=== PATIENT | male | born 1965 | race Caucasian/White ===

== ENCOUNTER 2020-07-21 05:30 | Inpatient (IN) | payer OTHER ==
[~2020-07-21] VITALS: Ht 182.9 cm; Wt 175.1 kg
[2020-07-21] MEDS: IPRATROPIUM BROMIDE 0.02% 2.5 ML NEB NEB SCH ×2 (00:05→14:20)
[2020-07-21] MEDS ORDERED: ASPIRIN 81 MG CHEW TAB PO ONE (05:45)
[2020-07-21] MEDS ORDERED: DILTIAZEM HCL 5 MG/ML 5 ML VIAL IV STA ×2 (05:54)
[2020-07-21 06:01] LABS: BASOPHILS # (AUTO) 0.1 (0.0-0.1); BASOPHILS % 0.5 % (0.0-1.0); EOSINOPHILS # (AUTO) 0.1 (0.0-0.4); EOSINOPHILS % 0.7 % (0.0-6.0); HEMATOCRIT 46.2 % (38.2-49.6); HEMOGLOBIN 15.1 g/dL (14.0-18.0); LYMPHOCYTES # (AUTO) 0.8 (1.0-3.2); LYMPHOCYTES % 8.6 % (18.0-39.1); MEAN CORPUSCULAR HEMOGLOBIN 31.3 pg (28-32); MEAN CORPUSCULAR HGB CONC 32.7 g/dL (31-35); MEAN CORPUSCULAR VOLUME 95.7 fL (81-99); MONOCYTES # (AUTO) 0.6 (0.2-0.8); MONOCYTES % 6.2 % (4.4-11.3); NEUTROPHILS % 83.3 % (38.7-80.0); PLATELET COUNT 193 x10e3/uL (140-360); RED BLOOD COUNT 4.83 x10e6/uL (4.3-5.7); RED CELL DISTRIBUTION WIDTH 14.1 % (11.7-14.4)
[2020-07-21 06:13] LABS: ALANINE AMINOTRANSFERASE 252 IU/L (0-55); ALBUMIN 3.4 g/dL (3.5-5.0); ALBUMIN/GLOBULIN RATIO 1.1 (0.8-2.0); ALKALINE PHOSPHATASE 86 IU/L (40-150); BLOOD UREA NITROGEN 16 mg/dL (7-26); BUN/CREATININE RATIO 13 (6-25); CALCIUM 8.4 mg/dL (8.4-10.2); CARBON DIOXIDE 26 mmol/L (22-29); CHLORIDE 105 mmol/L (98-107); CREATINE KINASE 66 IU/L (30-200); CREATININE, SERUM 1.22 mg/dL (0.72-1.25); EST GLOMERULAR FILTRATION RATE > 60 ML/MIN (60-); GLUCOSE 263 mg/dL (74-118); SODIUM 140 mmol/L (136-145)
[2020-07-21] MEDS ORDERED: FUROSEMIDE INJ 10 MG/ML 4 ML VIAL IV ONE (06:30)
[2020-07-21] MEDS ORDERED: DILTIAZEM HCL 125 ML IV STA (07:00)
[2020-07-21] MEDS ORDERED: AMIODARONE HCL 150 MG/100 ML BAG IV ONE (07:15)
[2020-07-21] MEDS ORDERED: NEXTERONE IV 150MG/100ML PREMIX BAG IV ONE (07:15)
[2020-07-21] MEDS: AMIODARONE 900MG 500 ML IV PRN (07:46)
[2020-07-21] MEDS: DILTIAZEM HCL 125 ML IV SCH (07:47)
[2020-07-21] MEDS: FUROSEMIDE INJ 10 MG/ML 4 ML VIAL IV SCH ×2 (13:22→23:00)
[2020-07-21] MEDS: METOPROLOL TARTRATE 25 MG TAB PO SCH ×2 (13:23→18:02)
[2020-07-21] MEDS: APIXABAN 5 MG TABLET PO SCH (13:23)
[2020-07-21 16:15] LABS: CREATINE KINASE MB 2.7 ng/mL (0-5.0)
[2020-07-21] MEDS ORDERED: TRAMADOL HCL 50 MG TAB PO PRN (22:00)
[2020-07-22 00:15] LABS: CREATINE KINASE MB 2.3 ng/mL (0-5.0)
[2020-07-22] MEDS: IPRATROPIUM BROMIDE 0.02% 2.5 ML NEB NEB SCH ×4 (00:20→19:10)
[2020-07-22] MEDS: METOPROLOL TARTRATE 25 MG TAB PO SCH ×2 (03:00→08:45)
[2020-07-22] MEDS ORDERED: ZOLPIDEM TARTRATE 5 MG TAB PO PRN (05:45)
[2020-07-22 05:46] LABS: BASOPHILS # (AUTO) 0.1 (0.0-0.1); BASOPHILS % 0.6 % (0.0-1.0); EOSINOPHILS # (AUTO) 0.2 (0.0-0.4); EOSINOPHILS % 2.2 % (0.0-6.0); HEMATOCRIT 44.8 % (38.2-49.6); HEMOGLOBIN 14.5 g/dL (14.0-18.0); LYMPHOCYTES # (AUTO) 1.3 (1.0-3.2); LYMPHOCYTES % 16.7 % (18.0-39.1); MEAN CORPUSCULAR HEMOGLOBIN 31.3 pg (28-32); MEAN CORPUSCULAR HGB CONC 32.4 g/dL (31-35); MEAN CORPUSCULAR VOLUME 96.8 fL (81-99); MONOCYTES # (AUTO) 0.6 (0.2-0.8); MONOCYTES % 7.6 % (4.4-11.3); NEUTROPHILS # (AUTO) 5.7 (2.1-6.9); NEUTROPHILS % 72.1 % (38.7-80.0); PLATELET COUNT 171 x10e3/uL (140-360); RED BLOOD COUNT 4.63 x10e6/uL (4.3-5.7); RED CELL DISTRIBUTION WIDTH 14.1 % (11.7-14.4)
[2020-07-22 06:08] LABS: ALANINE AMINOTRANSFERASE 188 IU/L (0-55); ALBUMIN 3.3 g/dL (3.5-5.0); ALKALINE PHOSPHATASE 72 IU/L (40-150); ANION GAP 13.8 mmol/L (8-16); BLOOD UREA NITROGEN 14 mg/dL (7-26); BUN/CREATININE RATIO 13 (6-25); CALCIUM 8.3 mg/dL (8.4-10.2); CARBON DIOXIDE 31 mmol/L (22-29); CHLORIDE 101 mmol/L (98-107); CREATININE, SERUM 1.04 mg/dL (0.72-1.25); EST GLOMERULAR FILTRATION RATE > 60 ML/MIN (60-); GLUCOSE 133 mg/dL (74-118); POTASSIUM 3.8 mmol/L (3.5-5.1); SODIUM 142 mmol/L (136-145)
[2020-07-22 06:33] LABS: CREATINE KINASE MB 2.4 ng/mL (0-5.0)
[2020-07-22] MEDS: DILTIAZEM HCL 125 ML IV SCH (08:02)
[2020-07-22] MEDS: APIXABAN 5 MG TABLET PO SCH ×2 (08:45→16:40)
[2020-07-22] MEDS: BENZONATATE 100 MG CAP PO SCH ×3 (08:45→23:04)
[2020-07-22] MEDS: FUROSEMIDE INJ 10 MG/ML 4 ML VIAL IV SCH ×2 (08:45→23:04)
[2020-07-22] MEDS: AMIODARONE 900MG 500 ML IV PRN (10:38)
[2020-07-22] MEDS ORDERED: METOPROLOL TARTRATE 25 MG TAB PO SCH (12:00)
[2020-07-22] MEDS: METOPROLOL TARTRATE 50 MG TAB PO SCH ×2 (12:45→18:30)
[2020-07-23] MEDS: METOPROLOL TARTRATE 50 MG TAB PO SCH ×3 (00:53→12:35)
[2020-07-23] MEDS: IPRATROPIUM BROMIDE 0.02% 2.5 ML NEB NEB SCH ×4 (01:15→18:50)
[2020-07-23] MEDS ORDERED: GUAIFENESIN 600 MG TAB PO PRN (07:00)
[2020-07-23] MEDS: DILTIAZEM HCL 125 ML IV SCH (07:40)
[2020-07-23] MEDS: FUROSEMIDE INJ 10 MG/ML 4 ML VIAL IV SCH ×2 (08:35→21:49)
[2020-07-23] MEDS: APIXABAN 5 MG TABLET PO SCH ×2 (08:35→17:11)
[2020-07-23] MEDS: BENZONATATE 100 MG CAP PO SCH ×3 (08:35→21:49)
[2020-07-23] MEDS ORDERED: LISINOPRIL 2.5 MG TAB PO SCH (09:00)
[2020-07-23] MEDS: AMIODARONE HCL 200 MG TAB PO SCH (17:11)
[2020-07-23] MEDS: VALSARTAN/SACUBITRIL 24MG/26MG 1 EA TAB PO SCH (17:40)
[2020-07-23 18:29] VITALS: BP 139/116
[2020-07-23 20:00] VITALS: BP_SYST 125; BP_SYST 99; BP_DIAS 72; BP_DIAS 83
[2020-07-23] MEDS: METOPROLOL SUCCINATE 50 MG TAB XL PO SCH (20:00)
[2020-07-24] VITALS (8 sets, daily range): BP systolic 111–135; BP diastolic 64–110
[2020-07-24] MEDS: IPRATROPIUM BROMIDE 0.02% 2.5 ML NEB NEB SCH ×5 (00:45→23:29)
[2020-07-24] MEDS ORDERED: SODIUM CHLORIDE 0.9% 250ML 250 ML ONE (05:37)
[2020-07-24] MEDS: CEFTRIAXONE SOD 1 GM/NS 50 ML 50 ML IV SCH (05:37)
[2020-07-24] MEDS: DILTIAZEM HCL 125 ML IV SCH (07:30)
[2020-07-24] MEDS: VALSARTAN/SACUBITRIL 24MG/26MG 1 EA TAB PO SCH ×2 (08:48→16:55)
[2020-07-24] MEDS: APIXABAN 5 MG TABLET PO SCH ×2 (08:48→16:55)
[2020-07-24] MEDS: FUROSEMIDE INJ 10 MG/ML 4 ML VIAL IV SCH (08:48)
[2020-07-24] MEDS: BENZONATATE 100 MG CAP PO SCH ×3 (08:48→21:37)
[2020-07-24] MEDS: AMIODARONE HCL 200 MG TAB PO SCH ×2 (08:48→16:55)
[2020-07-24] MEDS: METOPROLOL SUCCINATE 50 MG TAB XL PO SCH ×2 (08:48→16:56)
[2020-07-24] MEDS ORDERED: SPIRONOLACTONE 25 MG TAB PO NR (11:00)
[2020-07-25] VITALS (10 sets, daily range): BP systolic 118–130; BP diastolic 88–99
[2020-07-25] MEDS: CEFTRIAXONE SOD 1 GM/NS 50 ML 50 ML IV SCH (05:00)
[2020-07-25] MEDS: DILTIAZEM HCL 125 ML IV SCH (07:30)
[2020-07-25] MEDS: APIXABAN 5 MG TABLET PO SCH ×2 (09:24→17:48)
[2020-07-25] MEDS: AMIODARONE HCL 200 MG TAB PO SCH ×2 (09:24→17:48)
[2020-07-25] MEDS: SPIRONOLACTONE 25 MG TAB PO SCH (09:24)
[2020-07-25] MEDS: FUROSEMIDE 40 MG TAB PO SCH (09:25)
[2020-07-25] MEDS: VALSARTAN/SACUBITRIL 24MG/26MG 1 EA TAB PO SCH ×2 (09:25→17:48)
[2020-07-25] MEDS: BENZONATATE 100 MG CAP PO SCH ×3 (09:25→20:28)
[2020-07-25] MEDS: METOPROLOL SUCCINATE 50 MG TAB XL PO SCH (09:26)
[2020-07-25] MEDS: IPRATROPIUM BROMIDE 0.02% 2.5 ML NEB NEB SCH ×3 (10:22→20:18)
[2020-07-25] MEDS: METOPROLOL TARTRATE 50 MG TAB PO SCH ×2 (17:48→23:48)
[2020-07-26] VITALS (8 sets, daily range): BP systolic 109–148; BP diastolic 75–108
[2020-07-26] MEDS: IPRATROPIUM BROMIDE 0.02% 2.5 ML NEB NEB SCH ×2 (01:00→20:40)
[2020-07-26] MEDS: METOPROLOL TARTRATE 50 MG TAB PO SCH ×2 (05:20→12:27)
[2020-07-26] MEDS: CEFTRIAXONE SOD 1 GM/NS 50 ML 50 ML IV SCH (05:30)
[2020-07-26] MEDS: DILTIAZEM HCL 125 ML IV SCH (07:30)
[2020-07-26 08:11] LABS: BASOPHILS # (AUTO) 0.1 (0.0-0.1); BASOPHILS % 0.8 % (0.0-1.0); EOSINOPHILS # (AUTO) 0.2 (0.0-0.4); EOSINOPHILS % 2.9 % (0.0-6.0); HEMATOCRIT 47.8 % (38.2-49.6); LYMPHOCYTES # (AUTO) 1.5 (1.0-3.2); LYMPHOCYTES % 23.8 % (18.0-39.1); MEAN CORPUSCULAR HEMOGLOBIN 30.9 pg (28-32); MEAN CORPUSCULAR HGB CONC 31.4 g/dL (31-35); MEAN CORPUSCULAR VOLUME 98.6 fL (81-99); MONOCYTES # (AUTO) 0.5 (0.2-0.8); MONOCYTES % 8.6 % (4.4-11.3); NEUTROPHILS % 63.3 % (38.7-80.0); PLATELET COUNT 209 x10e3/uL (140-360); RED BLOOD COUNT 4.85 x10e6/uL (4.3-5.7)
[2020-07-26 08:57] LABS: ALANINE AMINOTRANSFERASE 73 IU/L (0-55); ALBUMIN 2.9 g/dL (3.5-5.0); ALBUMIN/GLOBULIN RATIO 0.9 (0.8-2.0); ALKALINE PHOSPHATASE 60 IU/L (40-150); ANION GAP 10.1 mmol/L (8-16); BLOOD UREA NITROGEN 18 mg/dL (7-26); BUN/CREATININE RATIO 18 (6-25); CALCIUM 8.7 mg/dL (8.4-10.2); CARBON DIOXIDE 34 mmol/L (22-29); CHLORIDE 98 mmol/L (98-107); EST GLOMERULAR FILTRATION RATE > 60 ML/MIN (60-); GLUCOSE 141 mg/dL (74-118); POTASSIUM 4.1 mmol/L (3.5-5.1); SODIUM 138 mmol/L (136-145)
[2020-07-26] MEDS: APIXABAN 5 MG TABLET PO SCH ×2 (09:18→17:43)
[2020-07-26] MEDS: SPIRONOLACTONE 25 MG TAB PO SCH (09:18)
[2020-07-26] MEDS: AMIODARONE HCL 200 MG TAB PO SCH ×2 (09:18→17:43)
[2020-07-26] MEDS: VALSARTAN/SACUBITRIL 24MG/26MG 1 EA TAB PO SCH ×2 (09:19→17:43)
[2020-07-26] MEDS: BENZONATATE 100 MG CAP PO SCH ×3 (09:19→21:16)
[2020-07-26] MEDS: FUROSEMIDE 40 MG TAB PO SCH (09:19)
[2020-07-26] MEDS: METOPROLOL SUCCINATE 50 MG TAB XL PO SCH (17:43)
[2020-07-27] VITALS (7 sets, daily range): BP systolic 96–146; BP diastolic 79–122
[2020-07-27] MEDS: IPRATROPIUM BROMIDE 0.02% 2.5 ML NEB NEB SCH ×4 (01:00→20:35)
[2020-07-27] MEDS: CEFTRIAXONE SOD 1 GM/NS 50 ML 50 ML IV SCH (04:49)
[2020-07-27] MEDS: METOPROLOL SUCCINATE 50 MG TAB XL PO SCH ×2 (06:17→17:17)
[2020-07-27] MEDS: SPIRONOLACTONE 25 MG TAB PO SCH (08:32)
[2020-07-27] MEDS: FUROSEMIDE 40 MG TAB PO SCH (08:33)
[2020-07-27] MEDS: APIXABAN 5 MG TABLET PO SCH ×2 (08:33→16:50)
[2020-07-27] MEDS: VALSARTAN/SACUBITRIL 24MG/26MG 1 EA TAB PO SCH ×2 (08:33→16:50)
[2020-07-27] MEDS: BENZONATATE 100 MG CAP PO SCH ×3 (08:33→22:50)
[2020-07-27] MEDS: AMIODARONE HCL 200 MG TAB PO SCH ×2 (08:33→16:50)
[2020-07-27] MEDS ORDERED: ISOSORBIDE MONONITRATE 30 MG TAB CR PO ONE (12:00)
[2020-07-27] MEDS ORDERED: DIGOXIN INJ 0.25 MG/ML 2 ML AMP IV ONE (18:25)
[2020-07-28] VITALS (7 sets, daily range): BP systolic 117–145; BP diastolic 79–106
[2020-07-28] MEDS: IPRATROPIUM BROMIDE 0.02% 2.5 ML NEB NEB SCH ×4 (01:30→15:37)
[2020-07-28] MEDS: CEFTRIAXONE SOD 1 GM/NS 50 ML 50 ML IV SCH (05:00)
[2020-07-28] MEDS: METOPROLOL SUCCINATE 50 MG TAB XL PO SCH (05:10)
[2020-07-28] MEDS ORDERED: DIGOXIN 0.125 MG TAB PO SCH (09:00)
[2020-07-28] MEDS ORDERED: ISOSORBIDE MONONITRATE 30 MG TAB CR PO SCH (09:00)
[2020-07-28] MEDS: SPIRONOLACTONE 25 MG TAB PO SCH (09:31)
[2020-07-28] MEDS: VALSARTAN/SACUBITRIL 24MG/26MG 1 EA TAB PO SCH ×2 (09:31→16:02)
[2020-07-28] MEDS: APIXABAN 5 MG TABLET PO SCH ×2 (09:31→16:02)
[2020-07-28] MEDS: AMIODARONE HCL 200 MG TAB PO SCH ×2 (09:31→16:02)
[2020-07-28] MEDS: BENZONATATE 100 MG CAP PO SCH ×2 (09:32→15:58)
[2020-07-28] MEDS: FUROSEMIDE 40 MG TAB PO SCH (09:32)
== END 2020-07-28 17:58 | disposition home or self-care (01) | DRG 308 ==
LOC: ER 05:38 → ERHOLD 08:16 → MED/SURG 07-23 18:22
PROVIDERS: ADMIT Internal Medicine; ATTEND Internal Medicine
DX: I48.91 Unspecified atrial fibrillation (principal); I50.23 Acute on chronic systolic (congestive) heart failure; J96.01 Acute respiratory failure with hypoxia; I13.0 Hypertensive heart and chronic kidney disease with heart failure and stage 1 through stage 4 chronic kidney disease, or unspecified chronic kidney disease; Z68.42 Body mass index [BMI] 45.0-49.9, adult; N18.30 Chronic kidney disease, stage 3 unspecified; E11.9 Type 2 diabetes mellitus without complications; E66.01 Morbid (severe) obesity due to excess calories; G47.33 Obstructive sleep apnea (adult) (pediatric); Z20.822 Contact with and (suspected) exposure to COVID-19
CPT/HCPCS: 36415; 71045; 71046; 80053; 82550; 82553; 83735; 83880; 84443; 84484; 85025; 93005; 93306; 94060; 94640; 97139; 99285; J0696; J1160; J1940; J7050; U0002